=== PATIENT | female | born 1970 | race African-American/Black ===

== ENCOUNTER 2018-05-29 10:41 | Emergency (ER) | payer OTHER ==
[2018-05-29 10:49] VITALS: TEMP 97.8; BMI 32.5
--- NOTE | 2018-05-29 12:05 | PDOC ---
History of Present Illness - General History Source: Patient - History of Present Illness Timing/Duration: reports: other Associated Symptoms: reports: chest pain/soreness, cough, shortness of breath. denies: fever/chills <Ryder Silver - Last Filed: 05/29/18 13:21> <Mitch Boswell - Last Filed: 05/29/18 15:33> - General Chief Complaint: Chest Pain Stated Complaint: CHEST PAIN Time Seen by Provider: 05/29/18 10:58 Past History - Past Medical History COPD: No Diabetes: Yes (insulin) - Surgical History Cholecystectomy: Yes - Suicide/Smoking/Psychosocial Hx Smoking History: Never smoked Hx Alcohol Use: No Drug/Substance Use Hx: No Substance Use Type: None <Ryder Silver - Last Filed: 05/29/18 13:21> <Mitch Boswell - Last Filed: 05/29/18 15:33> - Past Medical History Allergies/Adverse Reactions: Allergies Allergy/AdvReac Type Severity Reaction Status Date / Time vancomycin Allergy Verified 03/18/18 11:21 Home Medications: Ambulatory Orders Insulin Aspart [Novolog] 0 unit SQ DAILY 03/18/18 Simvastatin 20 mg PO DAILY 03/18/18 Amlodipine Besylate 5 mg PO DAILY 05/29/18 Aspirin Coated [Ecotrin -] 325 mg PO DAILY 05/29/18 Insulin Glargine,Hum.rec.anlog [Basaglar Kwikpen U-100] 0 unit SQ ASDIR Valsartan/Hydrochlorothiazide [Valsartan-Hctz 320-25 mg Tab] 1 each PO DAILY Review of Systems - Review of Systems Constitutional: No: Chills, Fever Respiratory: Yes: Cough, Shortness of Breath Cardiac (ROS): Yes: Chest Pain. No: Palpitations <Ryder Silver - Last Filed: 05/29/18 13:21> *Physical Exam - Vital Signs Last Vital Signs Temp Pulse Resp BP Pulse Ox 97.8 F 97 H 20 157/90 98 05/29/18 10:48 05/29/18 10:48 05/29/18 10:48 05/29/18 10:48 05/29/18 10:48 - Physical Exam General Appearance: Yes: Appropriately Dressed. No: Apparent Distress HEENT: positive: Normal Voice Neck: positive: Supple Respiratory/Chest: positive: Lungs Clear, Normal Breath Sounds. negative: Respiratory Distress Cardiovascular: positive: Regular Rate, S1, S2 Extremity: positive: Normal Inspection. negative: Pedal Edema Integumentary: positive: Dry, Warm Neurologic: positive: Fully Oriented, Alert, Normal Mood/Affect <Stacey SilverShivamAislinn - Last Filed: 05/29/18 13:21> - Vital Signs Last Vital Signs Temp Pulse Resp BP Pulse Ox 97.8 F 74 18 143/100 100 05/29/18 10:48 05/29/18 13:34 05/29/18 13:34 05/29/18 13:34 05/29/18 13:34 <Mitch Boswell - Last Filed: 05/29/18 15:33> Heart Score/ECG Review - ECG Intrepretation Comment:: 05/29/18 12:59 Twelve-lead EKG was performed and reviewed by me. There is normal sinus rhythm with a normal rate. The axis is normal. The intervals are normal. There are no ST or T wave abnormalities. Impression: Normal twelve-lead EKG <Ryder Silver - Last Filed: 05/29/18 13:21> ED Treatment Course - LABORATORY CBC & Chemistry Diagram: 05/29/18 11:37 05/29/18 11:37 - RADIOLOGY Radiology Studies Ordered: Category Date Time Status CHEST PA & LAT [RAD] Stat Radiology 05/29/18 11:24 Ordered <Ryder Silver - Last Filed: 05/29/18 13:21> - LABORATORY CBC & Chemistry Diagram: 05/29/18 11:37 05/29/18 11:37 - ADDITIONAL ORDERS Additional order review: Laboratory Results 05/29/18 05/29/18 11:37 11:37 Sodium 140 Potassium 4.3 Chloride 105 Carbon Dioxide 27 Anion Gap 7 L BUN 13 Creatinine 0.8 Creat Clearance w eGFR > 60 Random Glucose 266 H Calcium 8.8 Total Bilirubin 0.8 AST 18 ALT 33 Alkaline Phosphatase 113 Creatine Kinase 110 Troponin I < 0.02 Total Protein 7.2 Albumin 3.4 Serum , Qual Negative 05/29/18 12:10 Influenza Types A,B Antigen - Final Nasopharyngeal Swab - Final 05/29/18 11:37 RBC 4.32 MCV 91.3 MCHC 33.3 RDW 13.3 MPV 9.3 Neutrophils % 48.5 Lymphocytes % 43.4 H Monocytes % 4.2 Eosinophils % 1.8 Basophils % 2.1 H <Mitch Boswell - Last Filed: 05/29/18 15:33> Medical Decision Making - Medical Decision Making 05/29/18 11:45 48-year-old female, history of diabetes, hypertension, hyperlipidemia, pneumonia , here with mostly non-productive cough for over a week w/ "flu-like symptoms" and developed SOB yesterday. Also complaining of vague diffuse chest pain yesterday that has been intermittent with no worsening or exacerbating factors. No hemoptysis, fever or chills. States this feels like her prior pneumonias. Patient did travel to and from [place] in the past 2 weeks, but states symptoms started prior to traveling. Denies palpitations, leg pain or swelling See exam R/o PNA, less likely ACS or PE -ekg -cxr -labs -dispo pending 05/29/18 13:16 EKG, chest x-ray and labs unremarkable. Patient feeling better at this time. States she feels well enough to go home. Told to return as needed, otherwise follow-up with her PMD 05/29/18 13:18 05/29/18 13:22 <Ryder Silver - Last Filed: 05/29/18 13:21> - Medical Decision Making 05/29/18 15:33 I reviewed the case of the mid-level practitioner and was available for consultation while in the emergency department <Mitch Boswell - Last Filed: 05/29/18 15:33> *DC/Admit/Observation/Transfer <Ryder Silver - Last Filed: 05/29/18 13:21> <Mitch Boswell - Last Filed: 05/29/18 15:33> Diagnosis at time of Disposition: Cough - Discharge Dispostion Disposition: HOME Condition at time of disposition: Good - Referrals Referrals: Matt Perez [Primary Care Provider] - - Patient Instructions Printed Discharge Instructions: DI for Viral Upper Respiratory Infection -- Adult Additional Instructions: Your EKG, chest x-ray, labs and flu tests were all normal. You most likely have a viral URI. Rest, drink plenty of fluids and take [id number] medications as needed. If symptoms worsen, return to the ED, otherwise follow-up with your PMD - Post Discharge Activity Forms/Work/School Notes: Back to Work
[2018-05-29 12:14] LABS: BASO % 2.1 % (0-2.0); EOS % 1.8 % (0-4.5); HEMATOCRIT 39.4 % (32.4-45.2); HEMOGLOBIN 13.1 GM/dL (10.7-15.3); LYMPH % 43.4 % (8-40); MCH 30.4 pg (25.7-33.7); MCHC 33.3 g/dl (32.0-36.0); MEAN CELL VOLUME 91.3 fl (80-96); MEAN PLT VOLUME 9.3 fl (7.5-11.1); MONO % 4.2 % (3.8-10.2); NEUT % 48.5 % (42.8-82.8); PLATELET COUNT 298 K/MM3 (134-434); RBC 4.32 M/mm3 (3.60-5.2); RDW 13.3 % (11.6-15.6)
[2018-05-29 12:20] LABS: ALBUMIN 3.4 g/dl (3.4-5.0); ALK PHOS 113 U/L (45-117); ANION GAP 7 MMOL/L (8-16); BILIRUBIN,TOTAL 0.8 mg/dL (0.2-1); BLOOD UREA NITROGEN 13 mg/dL (7-18); CALCIUM 8.8 mg/dL (8.5-10.1); CHLORIDE 105 mmol/L (98-107); CO2 27 mmol/L (21-32); CREATININE 0.8 mg/dL (0.55-1.3); GLUCOSE,RANDOM 266 mg/dL (74-106); POTASSIUM 4.3 mmol/L (3.5-5.1); SGOT/AST 18 U/L (15-37); SGPT/ALT 33 U/L (13-61); SODIUM 140 mmol/L (136-145); TOT PROT 7.2 g/dl (6.4-8.2)
[2018-05-29 13:34] VITALS: BP 143/100; PULSE 74
--- NOTE | 2018-05-30 15:05 | EKG ---
Test Reason : Blood Pressure : / mmHG Vent. Rate : 083 BPM Atrial Rate : 083 BPM P-R Int : 158 ms QRS Dur : 076 ms QT Int : 362 ms P-R-T Axes : 059 068 061 degrees QTc Int : 425 ms NORMAL SINUS RHYTHM NORMAL ECG NO PREVIOUS ECGS AVAILABLE Confirmed by MD Lucho, Angelo ([id number]) on 05/30/2018 3:04:54 PM Referred By: Confirmed By:Angelo Yepez MD
== END 2018-05-29 13:35 | disposition home or self-care (01) ==
LOC: JER 10:41
DX: R05 Cough (principal); E11.9 Type 2 diabetes mellitus without complications; I10 Essential (primary) hypertension; E78.5 Hyperlipidemia, unspecified; J18.9 Pneumonia, unspecified organism
CPT/HCPCS: 36415; 71046-TC-FY; 80053; 82550; 84484; 84703; 85025; 87040; 87804; 93005; 93010; 99285-25

== ENCOUNTER 2019-09-07 09:39 | Emergency (ER) | payer OTHER ==
[2019-09-07 09:54] VITALS: BP 156/86; PULSE 118; TEMP 101.5; BMI 30.2
[2019-09-07] MEDS ORDERED: ACETAMINOPHEN 325 MG TABLET (FP) PO ONE (10:01)
[2019-09-07] MEDS ORDERED: OSELTAMIVIR PHOSPHATE 75 MG CAPSULE PO ONE (10:01)
--- NOTE | 2019-09-07 10:03 | PDOC ---
History of Present Illness - General Chief Complaint: Respiratory Stated Complaint: COUGH Time Seen by Provider: 09/07/19 09:41 - History of Present Illness Initial Comments: Radha Campos is a 49yo woman with a PMH of IDDM, HTN, HLD who presents with one day of cough, fever, rhinorrhea, and headache. 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 Ms Campos took Aleve at home overnight around 3am with some improvement in her symptoms, but she continues to have productive cough and malaise. She was additionally concerned about possible pneumonia as she reports 3x episodes of pneumonia last year. Past History - Past Medical History Allergies/Adverse Reactions: Allergies Allergy/AdvReac Type Severity Reaction Status Date / Time vancomycin Allergy Rash Verified 09/07/19 09:40 Home Medications: Ambulatory Orders Amlodipine Besylate 10 mg PO DAILY 09/07/19 Atorvastatin Ca [Lipitor] 40 mg PO HS 09/07/19 Cholecalciferol (Vitamin D3) [Vitamin D3] 2,000 unit PO DAILY 09/07/19 Insulin Glargine,Hum.rec.anlog [Lantus Solostar] 80 unit SQ BID 09/07/19 Insulin Lispro [Insulin Lispro Kwikpen U-100] 0 unit SQ TID 09/07/19 Metformin HCl [Glucophage] 500 mg PO BID 09/07/19 Oseltamivir Phosphate [Tamiflu] 75 mg PO Q12H 5 Days #10 capsule 09/07/19 Valsartan/Hydrochlorothiazide [Valsartan-Hctz 320-25 mg Tab] 1 each PO DAILY 11/21 COPD: No Diabetes: Yes HTN: Yes Hypercholesterolemia: Yes - Surgical History Cholecystectomy: Yes - Psycho Social/Smoking Cessation Hx Smoking History: Never smoked Have you smoked in the past 12 months: No Information on smoking cessation initiated: No Hx Alcohol Use: No Drug/Substance Use Hx: No Substance Use Type: None Review of Systems - Review of Systems Comments:: General: +fevers/chills, no weight or appetite change, + malaise HEENT: No changes in vision, no changes in hearing, + congestion, +MIRELES, no sore throat CV: No chest pain, no palpitations, no LE edema Pulm: No SOB, + cough, no wheezing GI: No nausea or vomiting, no change in bowel habits, no melena : No frequency, no urgency, no dysuria Musc: No back pain, no joint swelling, no recent injury Skin: No rash, no lesions, no erythema Endo: No excessive thirst, no heat/cold intolerance Heme: No unusual bruising or bleeding, no swollen glands Neuro: No syncope, no numbness/tingling, no focal weakness Vasc: No claudication Psych: No recent change in mood, no SI or HI *Physical Exam - Vital Signs Last Vital Signs Temp Pulse Resp BP Pulse Ox 101.5 F H 118 H 20 156/86 100 09/07/19 09:39 09/07/19 09:39 09/07/19 09:39 09/07/19 09:39 09/07/19 09:39 - Physical Exam General: Comfortable, no acute distress HEENT: Atraumatic, PERRL, EOMI, MMM, voice normal, normal neck ROM Cards: RRR, no murmur appreciated Pulm: Comfortable on room air, clear to auscultation bilaterally Abd: Soft, nontender, nondistended Ext: Atraumatic. No LE edema. ROM intact. WWP Neuro: A&Ox3, CN grossly intact, normal speech, motor/sensory grossly intact and symmetric Psych: Mood appropriate to situation ED Treatment Course - RADIOLOGY Radiology Studies Ordered: Category Date Time Status CHEST PA & LAT [RAD] Stat Radiology 09/07/19 10:00 Ordered Medical Decision Making - Medical Decision Making 09/07/19 10:03 Radha Campos is a 49yo woman with a PMH of IDDM, HTN, HLD who presents with one day of cough, fever, rhinorrhea, and headache. She reports exposure to confirmed influenza at work. Ms Campos reports concern about pneumonia as she has had several episodes in the past. - High risk patient, multiple comorbidities, exposure to influenza. Will treat for flu, no need to test - CXR given history of multiple episodes of pneumonia 09/07/19 10:20 - CXR without focal abnormalities - Will d/c with tamiflu given comorbidities - Discussed home care, return precautions, follow up in detail. Pt understands and agrees Discussed with Dr Andreia Win PGY2 Discharge - Discharge Information Problems reviewed: Yes Clinical Impression/Diagnosis: Influenza Condition: Stable Disposition: HOME - Admission No - Additional Discharge Information Prescriptions: Oseltamivir Phosphate [Tamiflu] 75 mg PO Q12H 5 Days #10 capsule - Follow up/Referral Referrals: Matt Perez [Primary Care Provider] - - Patient Discharge Instructions Patient Printed Discharge Instructions: DI for Influenza -- Adult Additional Instructions: Discharge Instructions: You were seen in the emergency department for fever and cough. Your symptoms are most likely due to influenza. Home Care and Follow Up: - You have been prescribed a medication for influenza called Tamiflu. This should be taken twice per day for 5 days. - Make sure you are drinking plenty of fluids while you are sick. Increase your normal fluid intake. It is OK if you do not feel like eating as long as you are staying well hydrated - You may use medications such as acetaminophen (Tylenol) 650-1000mg or ibuprofen (Advil, Motrin) 400-600mg every 6 hours as needed for pain or fever over 101F - Consider placing a humidifier in your room overnight to help relieve congestion and reduce drying of your nose and mouth. - Use throat lozenges (cough drops) for sore throat or cough - If you use additional cold medications, make sure they do not contain medicines you are already taking such as acetaminophen or ibuprofen - Do not return to work until you have been free of fever for at least 24 hours - You should feel better within a week, though cough can sometimes last longer. If you are not feeling better in a week, follow up with your primary doctor. - Seek immediate care if you have worsening symptoms, you are unable to stay hydrated, you develop high fevers over 104F that do not come down with medication, or you have any other medical emergency. - Post Discharge Activity Work/Back to School Note: Back to Work
[2019-09-07] MEDS ORDERED: ACETAMINOPHEN 325 MG TABLET (FP) ONE (10:04)
[2019-09-07] MEDS ORDERED: OSELTAMIVIR PHOSPHATE 75 MG CAPSULE ONE (10:04)
--- NOTE | 2019-09-07 10:13 | PDOC ---
Attending Attestation - Resident Resident Name: Rocío Win - ED Attending Attestation I have performed the following: I have examined & evaluated the patient, The case was reviewed & discussed with the resident, I agree w/resident's findings & plan, Exceptions are as noted - HPI HPI: 09/07/19 10:13 49 years old insulin-dependent diabetes hypertension high cholesterol presents to the emergency department 2-day history of fever chills body aches runny nose cough congestion multiple sick contacts at patient's job Symptoms are mild to moderate persistent constant - Physicial Exam PE: 09/07/19 10:13 Vitals: Triage Vital signs reviewed General Appearance: No acute distress, well nourished well developed, Head: Atraumatic, Cardiac: Regular rate and rhythym, no murmurs, no rubs, no gallops, Lungs: Clear to auscultation bilateral, good air movement bilaterally, Abdomen: Soft, non distended, normal bowel sounds, non tender to palpation Extremities: Full range of motion to all extremities, no cyanosis, clubbing, or edema Skin: Warm and dry, no rashes or lesions, no rash, no petechiae Psych: Normal mood, normal affect - Medical Decision Making 09/07/19 10:14 Well-appearing no apparent distress history examination consistent with influenza given patient's comorbidities will recommend Tamiflu given less than 48 hours of symptomatology Chest x-ray ordered to rule out pneumonia
== END 2019-09-07 10:55 | disposition home or self-care (01) ==
LOC: FER 09:39
DX: J11.1 Influenza due to unidentified influenza virus with other respiratory manifestations (principal); Z88.8 Allergy status to other drugs, medicaments and biological substances; E11.9 Type 2 diabetes mellitus without complications; I10 Essential (primary) hypertension; E78.5 Hyperlipidemia, unspecified
CPT/HCPCS: 71046-TC-FY; 99282-25

== ENCOUNTER 2021-01-03 09:09 | Day surgery (SDC) | payer OTHER ==
[2020-12-25 12:03] VITALS: BMI 28.5
[2021-01-03] MEDS ORDERED: INSULIN (NOVOLOG) ASPART 100 UNITS/ML 10ML VIAL SQ ONE (10:10)
[2021-01-03] MEDS ORDERED: fentaNYL CITRATE 250 MCG/5 ML VIAL ONE (10:58)
[2021-01-03] MEDS ORDERED: MIDAZOLAM HCL 2 MG/2 ML SINGLE DOSE VIAL ONE (10:58)
[2021-01-03] MEDS ORDERED: LIDOCAINE HCL 2% (50ML VIAL) NR ONE (11:16)
[2021-01-03] MEDS ORDERED: DEXAMETHASONE SOD PHOSPHATE 4 MG/1 ML VIAL ONE (11:19)
[2021-01-03] MEDS ORDERED: KETOROLAC TROMETHAMINE 30 MG/1 ML VIAL ONE (11:19)
[2021-01-03] MEDS ORDERED: ONDANSETRON 4 MG/2 ML VIAL ONE (11:19)
[2021-01-03 12:36] VITALS: PULSE 80
[2021-01-03 12:37] VITALS: BP 116/65; TEMP 97.9
== END 2021-01-03 12:37 | disposition home or self-care (01) ==
LOC: FASU 09:09
PROVIDERS: ATTEND Orthopaedic Surgery Hand Surgery
PROC: 01N50ZZ Release Median Nerve, Open Approach (ICD-10-PCS; principal; 2021-01-03 10:30)
DX: G56.02 Carpal tunnel syndrome, left upper limb (principal)
CPT/HCPCS: 82962; 84703

== ENCOUNTER 2022-07-01 11:12 | Emergency (ER) | payer OTHER ==
[2022-07-01 11:31] VITALS: BP 148/83; PULSE 80; RESP 16; TEMP 98.7; BMI 27.4
== END 2022-07-01 12:15 | disposition home or self-care (01) ==
LOC: FER 11:12 → SUPCPDRO 11:12 → FER 12:15
DX: M79.605 Pain in left leg (principal)
CPT/HCPCS: 72100-TC-FY; 73502-TC-LT-FY; 99284-25

== ENCOUNTER 2022-07-11 06:44 | Day surgery (SDC) | payer OTHER ==
[2022-07-10 14:43] VITALS: BMI 27.4
[2022-07-11] MEDS ORDERED: ONDANSETRON 4 MG/2 ML VIAL IVPUSH PRN (08:49)
[2022-07-11] MEDS ORDERED: ROPIVACAINE HCL 0.5% 30ML VIAL ONE (08:58)
[2022-07-11] MEDS ORDERED: LACTATED RINGERS SOLUTION 1,000 ML IV SCH (09:00)
[2022-07-11] MEDS ORDERED: MIDAZOLAM HCL 2 MG/2 ML SINGLE DOSE VIAL ONE (09:03)
[2022-07-11] MEDS ORDERED: PROPOFOL 20 ML ONE (09:22)
[2022-07-11] MEDS ORDERED: PHENYLEPHRINE HCL 10 MG/1 ML SINGLE DOSE VIAL ONE ×2 (09:22→10:53)
[2022-07-11] MEDS ORDERED: LIDOCAINE HCL 2% 100 MG/5 ML DISP.SYRIN ONE (09:25)
[2022-07-11] MEDS ORDERED: DEXAMETHASONE SOD PHOSPHATE 4 MG/1 ML VIAL ONE (10:01)
[2022-07-11] MEDS ORDERED: ONDANSETRON 4 MG/2 ML VIAL ONE (10:01)
[2022-07-11] MEDS ORDERED: GLYCOPYRROLATE 0.2 MG/1 ML VIAL ONE (10:02)
[2022-07-11 12:26] VITALS: TEMP 97.5
[2022-07-11] MEDS ORDERED: oxyCODONE HCL 5 MG TABLET ONE (13:27)
[2022-07-11 13:45] VITALS: RESP 18
[2022-07-11 14:28] VITALS: BP 147/70; PULSE 89
== END 2022-07-11 14:25 | disposition home or self-care (01) ==
LOC: FASU 06:44
PROVIDERS: ATTEND Orthopaedic Surgery Sports Medicine
PROC: 0LS44ZZ Reposition Left Upper Arm Tendon, Percutaneous Endoscopic Approach (ICD-10-PCS; principal; 2022-07-11 10:05)
PROC: 0LQ24ZZ Repair Left Shoulder Tendon, Percutaneous Endoscopic Approach (ICD-10-PCS; 2022-07-11 10:05)
DX: M75.102 Unspecified rotator cuff tear or rupture of left shoulder, not specified as traumatic (principal); M75.42 Impingement syndrome of left shoulder; M24.112 Other articular cartilage disorders, left shoulder
CPT/HCPCS: 82962; 94760; C1713